=== PATIENT | male | born 1995 | race Two or more races ===

== ENCOUNTER 2024-12-14 18:52 | Emergency (ER) | payer OTHER ==
[~2024-12-14] VITALS: Ht 162.6 cm; Wt 72.6 kg
[2024-12-14] MEDS ORDERED: METHYLPREDNISOLONE SOD SUCC 125 MG VIAL IV STA (21:32)
[2024-12-14] MEDS ORDERED: CEFTRIAXONE SODIUM 1,000 MG VIAL IV STA (21:33)
[2024-12-14] MEDS ORDERED: 0.9 % SODIUM CHLORIDE 500 ML IV STA (21:33)
[2024-12-14] MEDS ORDERED: BUDESONIDE 0.5 MG/2 ML AMPUL.NEB IH STA (21:34)
[2024-12-14] MEDS ORDERED: BUDESONIDE 0.5 MG/2 ML AMPUL.NEB IH ONE (21:37)
[2024-12-14] MEDS ORDERED: LEVALBUTEROL HCL 0.63 MG/3 ML SOLUTION IH ONE (21:38)
[2024-12-14] MEDS ORDERED: CEFTRIAXONE SODIUM 1,000 MG VIAL ONE (21:38)
[2024-12-14] MEDS ORDERED: METHYLPREDNISOLONE SOD SUCC 125 MG VIAL ONE (21:38)
[2024-12-14] MEDS ORDERED: LEVALBUTEROL HCL 1.25 MG/3 ML SOLUTION IH SCH (21:45)
[2024-12-14 23:24] LABS: HEMATOCRIT 42.6 % (39.0-48.0); MEAN CELL VOLUME 90.6 fL (80.0-100.00); MEAN CORPUSCULAR HGB CONC 35.3 g/dl (32.0-36.0); PLATELET COUNT 283 K/uL (150-450); RED CELL DISTRIBUTION WIDTH 13.5 % (11.5-14.5)
== END 2024-12-14 23:10 | disposition home or self-care (01) ==
LOC: ER 18:54
PROVIDERS: General Practice
DX: J45.909 Unspecified asthma, uncomplicated (principal); Z20.822 Contact with and (suspected) exposure to COVID-19